=== PATIENT | male | born 1960 | race Two or more races ===

== ENCOUNTER 2020-08-25 14:35 | Emergency (ER) | payer SELFPAY | END 2020-08-25 15:37 | disposition left against medical advice (07) | LOC: ER 14:35 → EDBD 14:41 → ER 15:37 | DX: R55 Syncope and collapse (principal) ==

== ENCOUNTER 2020-09-02 10:11 | Emergency (ER) | payer SELFPAY ==
[~2020-09-02] VITALS: Ht 193 cm; Wt 108.9 kg
[2020-09-02 11:04] LABS: Red Cell Distribution Width 14.1 % (11.8-14.3); White Blood Cell 9.2 10^3/uL (4.4-10.8)
[2020-09-02 11:05] LABS: Hematocrit 37.5 % (41.0-53.0); Mean Corpuscular Hemoglobin 31.8 pg (28.0-32.0); Mean Corpuscular Hgb Conc. 34.6 g/dL (32.0-36.0); Mean Corpuscular Volume 91.7 fL (80.0-100.0); Platelet Count (auto) 458 10^3/uL (140-450); Red Blood Cells 4.09 10^6/uL (4.5-5.90)
[2020-09-02 11:11] LABS: Urine Bacteria FEW /hpf (None Seen); Urine Blood Negative /uL (Negative); Urine Specific Gravity 1.009 (1.001-1.035); Urine Sperm PRESENT /hpf (None Seen); Urine WBC 1 /hpf (0 - 3)
[2020-09-02 11:15] LABS: Basophils % (manual) 0 (0.0-2.0); Blast Cells 0; Metamyelocytes % 0; Promyelocytes % 0; Reactive Lymphocytes 0
[2020-09-02 11:19] LABS: INR 0.95 (0.9-1.15); Partial Thromboplastin Time 25.7 sec (23.0-31.2)
[2020-09-02 11:22] LABS: Albumin 3.5 g/dL (3.4-5.0); Anion Gap 6 (5-15); Blood Urea Nitrogen 10 mg/dL (7-18); Calcium 8.9 mg/dL (8.5-10.1); Carbon Dioxide 28 mmol/L (21-32); Chloride 102 mmol/L (98-107); Glucose 98 mg/dL (74-106); Magnesium 2.6 mg/dL (1.6-2.6); Potassium 4.4 mmol/L (3.5-5.1); Sodium 136 mmol/L (136-145)
[2020-09-02 11:23] LABS: Alcohol, Urine < 3.0 mg/dL (0-10); Amphetamine Screen, Urine NEGATIVE (NEGATIVE); Barbiturate Scree,Urine NEGATIVE (NEGATIVE); Benzodiazephine Screen, Urine NEGATIVE (NEGATIVE); Cannabinoid Screen, Urine POSITIVE (NEGATIVE); Cocaine Screen, Urine NEGATIVE (NEGATIVE); Opiate Scree,Urine NEGATIVE (NEGATIVE); Phencyclidine Screen, Urine NEGATIVE (NEGATIVE)
[2020-09-02 11:29] LABS: Alanine Aminotransferase 31 U/L (16-61); Alkaline Phosphatase 98 U/L (45-117); Aspartate Aminotransferase 33 U/L (15-37); BUN/Creatinine Ratio 19.2; Bilirubin, Total 0.4 mg/dL (0.2-1.0); GFR African American 207 mL/min; GFR Non-African American 171 mL/min; Total Protein 7.7 g/dL (6.4-8.2)
[2020-09-02 11:52] LABS: Band Neutrophils % (manual) 8; Eosinophils % (manual) 1 (0-7); Lymphocytes % (manual) 17 (10.0-50.0); Monocytes % (manual) 10 (0-12); Myelocytes % 1
[2020-09-02] MEDS ORDERED: IOHEXOL 350 MG/ML 100ML IJ ONE (12:43)
[2020-09-02 13:39] VITALS: BP 127/82
== END 2020-09-02 15:17 | disposition left against medical advice (07) ==
LOC: ER 10:11
DX: R06.03 Acute respiratory distress (principal); J43.9 Emphysema, unspecified; Z53.29 Procedure and treatment not carried out because of patient's decision for other reasons; I25.2 Old myocardial infarction
CPT/HCPCS: 36415; 36600; 71045; 71275; 80053; 80307; 80320; 81001; 82805; 83735; 83880; 84443; 84484; 85007; 85027; 85379; 85610; 85730; 99285; Q9967; 93005

== ENCOUNTER 2020-09-02 16:42 | Emergency (ER) | payer SELFPAY ==
[~2020-09-02] VITALS: Ht 182.9 cm; Wt 99.8 kg
[2020-09-02 16:42] VITALS: BP 129/89
== END 2020-09-02 16:53 | disposition left against medical advice (07) ==
LOC: EDBD 16:42 → ER 16:42
DX: S00.81XA Abrasion of other part of head, initial encounter (principal); Z53.21 Procedure and treatment not carried out due to patient leaving prior to being seen by health care provider; X58.XXXA Exposure to other specified factors, initial encounter; Y93.89 Activity, other specified; Y92.89 Other specified places as the place of occurrence of the external cause; Y99.8 Other external cause status

== ENCOUNTER 2020-09-03 06:47 | Emergency (ER) | payer SELFPAY ==
[~2020-09-03] VITALS: Ht 193 cm; Wt 108.9 kg
[2020-09-03 10:03] VITALS: BP 118/83
== END 2020-09-03 10:53 | disposition home or self-care (01) ==
LOC: ER 06:47
DX: M79.89 Other specified soft tissue disorders (principal); J43.8 Other emphysema; I25.2 Old myocardial infarction
CPT/HCPCS: 93971

== ENCOUNTER 2023-08-05 04:23 | Emergency (ER) | payer OTHER, MEDICAID ==
[~2023-08-05] VITALS: Ht 182.9 cm; Wt 104.5 kg
[2023-08-05 04:46] LABS: Basophils # (auto) 0 10 ^3/uL (0-0.2); Basophils % (auto) 0.3 % (0.0-2.0); Eosinophils # (auto) 0.1 10 ^3/uL (0-0.8); Eosinophils % (auto) 0.7 % (0.0-7.0); Hematocrit 49.4 % (41.0-53.0); Hemoglobin 16.2 g/dL (13.5-17.5); Lymphocytes # (auto) 1.3 10 ^3/uL (0.4-5.4); Lymphocytes % (auto) 11.3 % (10.0-50.0); Mean Corpuscular Hemoglobin 30.8 pg (28.0-32.0); Mean Corpuscular Hgb Conc. 32.8 g/dL (32.0-36.0); Monocytes # (auto) 0.8 10 ^3/uL (0-1.3); Monocytes % (auto) 6.7 % (0.0-12.0); Neutrophils # (auto) 9.5 10 ^3/uL (1.6-8.6); Nucleated Red Blood Cells % 0.1 %; Red Blood Cells 5.26 10^6/uL (4.5-5.90); Red Cell Distribution Width 14.4 % (11.8-14.3); White Blood Cell 11.7 10^3/uL (4.4-10.8)
[2023-08-05 04:53] LABS: Chloride 102 mmol/L (98-107); Potassium 4.3 mmol/L (3.5-5.1); Sodium 138 mmol/L (136-145)
[2023-08-05 04:54] LABS: Anion Gap 4 (5-15); Calcium 9.9 mg/dL (8.5-10.1); Carbon Dioxide 32 mmol/L (20-30)
[2023-08-05 04:59] LABS: BUN/Creatinine Ratio 17.2 (10.0-20.0); Blood Urea Nitrogen 15 mg/dL (9-23); Glucose 130 mg/dL (74-106)
[2023-08-05 05:00] LABS: Blood Alcohol < 3.0 mg/dL (<10)
[2023-08-05 05:01] LABS: Acetaminophen < 2.0 UG/ML (10.0-20.0)
[2023-08-05 05:02] LABS: Salicylate < 3.0 mg/dL (2.8-20.0)
[2023-08-05] MEDS: LIDOCAINE 1% HCL (LOCAL ANESTH.) INJ 20ML MDV ID ONE (08:45)
[2023-08-05] MEDS: TETANUS-DIPTH-ACEL PERTUSSIS 0.5ML SYR Tdap IM ONE (09:00)
[2023-08-05 09:10] VITALS: PULSE 109; RESP 20; O2SAT 95
[2023-08-05] MEDS: cefTRIAXone SOD 1,000 MG VL IM ONE (09:42)
[2023-08-05 13:26] LABS: Amphetamine Screen, Urine Neg (NEGATIVE); Barbiturate Scree,Urine Neg (NEGATIVE); Benzodiazephine Screen, Urine Neg (NEGATIVE); Cocaine Screen, Urine Neg (NEGATIVE)
[2023-08-05 13:27] LABS: Cannabinoid Screen, Urine Pos (NEGATIVE); Opiate Scree,Urine Neg (NEGATIVE); Phencyclidine Screen, Urine Neg (NEGATIVE)
[2023-08-05 19:30] VITALS: PULSE 83; RESP 16; O2SAT 93
[2023-08-05 19:36] VITALS: PULSE 66; RESP 16; O2SAT 96
[2023-08-05] MEDS: MIRTAZAPINE 30 MG TAB PO SCH (21:58)
[2023-08-06] MEDS: IPRATROPIUM BROM 0.5 MG/2.5ML INH SOL NEB ONE (04:31)
[2023-08-06] MEDS: ALBUTEROL SULF 2.5 MG/0.5ML(0.5%) NEB SOLN NEB ONE (04:32)
[2023-08-06 07:35] VITALS: RESP 16; O2SAT 94
[2023-08-06 18:32] VITALS: BP 132/84; PULSE 78; RESP 16; TEMP 97.6; O2SAT 96
== END 2023-08-06 18:55 | disposition short-term general hospital (02) ==
LOC: EDBD 04:23 → ER 04:23
DX: S61.512A Laceration without foreign body of left wrist, initial encounter (principal); S61.511A Laceration without foreign body of right wrist, initial encounter; R45.851 Suicidal ideations; I25.2 Old myocardial infarction; X78.8XXA Intentional self-harm by other sharp object, initial encounter; Y93.89 Activity, other specified; Y92.89 Other specified places as the place of occurrence of the external cause; Y99.8 Other external cause status; Z79.899 Other long term (current) drug therapy
CPT/HCPCS: 12005; 36415; 80048; 80307; 80320; 80329; 85025; 90471; 90715; 96372; 99285; J0696; J7644